=== PATIENT | male | born 1945 | race Caucasian/White ===

== ENCOUNTER 2018-03-11 23:32 | Emergency (ER) | payer MEDICARE, BC ==
[2018-03-12 00:15] LABS: ADD MAN DIFF? NO
[2018-03-12 00:17] LABS: BASO # 0.1 x10^3/uL (0.0-0.2); BASO % 2 % (0-3); EOS # 0.2 x10^3/uL (0.0-0.7); EOS % 3 % (0-3); HEMATOCRIT 24.6 % (39.0-53.0); HEMOGLOBIN 8.4 g/dL (13.0-17.5); LYMPH # 1.2 x10^3/uL (1.0-4.8); LYMPH % 19 % (24-48); MEAN CORPUSCULAR HEMOGLOBIN 35 pg (25-35); MEAN CORPUSCULAR HGB CONC 34 g/dL (31-37); MEAN CORPUSCULAR VOLUME 102 fL (79-100); MONO # 0.6 x10^3/uL (0.0-1.1); MONO % 10 % (0-9); NEUT # 4.5 x10^3uL (1.8-7.7); NEUT % 67 % (31-73); PLATELET COUNT 249 x10^3/uL (140-400); RED BLOOD COUNT 2.42 x10^6/uL (4.30-5.70); RED CELL DISTRIBUTION WIDTH 15.2 % (11.5-14.5); WHITE BLOOD COUNT 6.7 x10^3/uL (4.0-11.0)
[2018-03-12 00:34] LABS: ANION GAP 10 (6-14); BLOOD UREA NITROGEN 52 mg/dL (8-26); BUN/CREATININE RATIO 9 (6-20); CALCIUM 9.1 mg/dL (8.5-10.1); CARBON DIOXIDE 22 mmol/L (21-32); CHLORIDE 102 mmol/L (98-107); CREATININE 5.9 mg/dL (0.7-1.3); GFR 9.5; GLUCOSE 163 mg/dL (70-99); POTASSIUM 4.9 mmol/L (3.5-5.1); SODIUM 134 mmol/L (136-145)
[2018-03-12 00:40] LABS: ALBUMIN 2.6 g/dL (3.4-5.0); ALBUMIN/GLOBULIN RATIO 0.5 (1.0-1.7); ALK PHOS 63 U/L (46-116); ALT (SGPT) 19 U/L (16-63); AST (SGOT) 11 U/L (15-37); TOTAL BILIRUBIN 0.4 mg/dL (0.2-1.0); TOTAL PROTEIN 7.6 g/dL (6.4-8.2)
[2018-03-12 00:47] LABS: TROPONINI < 0.017 ng/mL (0.000-0.055)
[2018-03-12 02:42] LABS: TROPONIN BY ISTAT 0.01 ng/ml (<0.08)
== END 2018-03-12 03:28 | disposition home or self-care (01) ==
LOC: ER 23:32
DX: R07.89 Other chest pain (principal); L03.116 Cellulitis of left lower limb; R06.02 Shortness of breath; N18.9 Chronic kidney disease, unspecified; Z88.5 Allergy status to narcotic agent; Z88.8 Allergy status to other drugs, medicaments and biological substances
CPT/HCPCS: 36415; 71045; 80053; 84484; 85025; 93005; 99285-25